=== PATIENT | female | born 1970 ===

== ENCOUNTER 2023-11-05 17:48 | Emergency (ER) | payer OTHER ==
[~2023-11-05] VITALS: Ht 157.4 cm; Wt 55.8 kg
[2023-11-05 18:02] VITALS: BP 126/86
[2023-11-05] MEDS ORDERED: METOPROLOL SUCC50 M1 PO (18:04)
[2023-11-05] MEDS ORDERED: GABAPENTIN100 M2 PO (18:04)
[2023-11-05] MEDS ORDERED: VAZALORE81 MG PO (18:04)
[2023-11-05] MEDS ORDERED: CLARITIN10 MG PO (18:05)
[2023-11-05] MEDS ORDERED: PREDNISONE20 M1 PO (18:39)
[2023-11-05] MEDS ORDERED: AMOX-CLAV 875-1 EACH PO (18:39)
[2023-11-05] MEDS ORDERED: methylPREDNISolone sod succ 125 MG VIAL IM ONE (18:40)
== END 2023-11-05 19:11 | disposition home or self-care (01) ==
LOC: ED 17:48
DX: I89.0 Lymphedema, not elsewhere classified (principal); Z88.1 Allergy status to other antibiotic agents; Z88.5 Allergy status to narcotic agent; Z98.51 Tubal ligation status; Z98.890 Other specified postprocedural states